=== PATIENT | female | born 1975 | race Caucasian/White ===

== ENCOUNTER 2021-04-07 17:56 | Outpatient (REF) | payer BC, SELFPAY | END 2021-04-07 17:57 | disposition home or self-care (01) | LOC: HO.LNP 17:56 | PROVIDERS: Visit Provider Internal Medicine | DX: Z20.822 Contact with and (suspected) exposure to COVID-19 (principal); J06.9 Acute upper respiratory infection, unspecified | CPT/HCPCS: U0003; U0005 ==

== ENCOUNTER 2022-08-04 11:30 | Emergency (ER) | payer BC, SELFPAY ==
[2022-08-04] VITALS (8 sets, daily range): BP systolic 99–119; BP diastolic 46–81; PULSE 66–93; RESP 16–18; TEMP 36.6–37.1; O2SAT 96–99; BMI 18.1
--- NOTE | ~2022-08-04 | CT_ITS ---
EXAMINATION: CT BRAIN, CERVICAL SPINE, CHEST, ABDOMEN AND PELVIS. CLINICAL INFORMATION: Fall down an escalator. Pain. COMPARISON: None TECHNIQUE: 5 mm thin axial and reformatted 2 mm thin sagittal and coronal images of brain were obtained without contrast. Axial 3 mm thin and reformatted 2 minutes thin sagittal coronal images of cervical spine were obtained. DLP 863. Axial 5 mm thin and reformatted 3 mm thin sagittal coronal images of chest, abdomen and pelvis were obtained. DLP 746. This CT examination was performed using dose optimization technique as appropriate, variously including the following: Automated exposure control Adjustment of MA and/or KV according to patient size(this includes techniques or standardized protocols for targeted exams where dose is matched to indication/reason for exam; extremities or head. Use of iterative reconstruction techniques. FINDINGS: BRAIN: There is no acute intra-axial, extra-axial bleed, masses or midline shift. There is no acute edema in evolution. There is no edema. The lateral ventricles are symmetrical in size and configuration without enlargement. Bone windows reveal no calvarial abnormality. There is no scalp soft tissue abnormality. Bilateral paranasal sinuses and mastoid air cells are well-aerated. CERVICAL SPINE: On sagittal reconstructed images there is mild straightening of cervical lordosis. The vertebral heights and alignment is normal. There is mild loss of C5-C6 disc level with posterior spondylosis. The rest of the disc levels are normal. The craniovertebral junction and C1-C2 alignment is normal. No visible acute fracture, dislocation or subluxation seen. There is minimal left C4-C5 facet joint arthropathy. CHEST: Both lungs are fairly well-expanded and clear acute pneumonic process. There is no pulmonary nodule, mass, contusion or consolidation. Dependent atelectatic changes are seen in both lung bases slightly more prominent on the left. There is no pleural effusion or pneumothorax. Heart size and the great vessels are normal caliber. There is no aortic aneurysm or dissection. No mediastinal mass or hematoma. No pericardial effusion. Central trachea and bronchi are widely patent. No abnormal lymph nodes seen axilla. The chest wall is unremarkable. Bone windows reveal no fractures involving the ribs or thoracic vertebrae. ABDOMEN AND PELVIS: The liver is enlarged in size contour and density. No focal lesion, laceration or perihepatic fluid collection. Visualized spleen, pancreas and bilateral adrenal glands are unremarkable. The gallbladder has been surgically removed Both kidney nephrograms are symmetrical in size without radiopaque calculi or hydronephrosis. There is scattered stool and gas seen in the colon without significant distention. The small bowel loops are normal caliber. Appendix is normal caliber. No free air or free fluid seen. The abdominal aorta is normal caliber. No abnormal lymph nodes or mass seen. The abdominal wall appears unremarkable.. CT/CT cervical spine wo IV con IMPRESSION: No acute intracranial process seen. There is no acute fracture, dislocation or subluxation in cervical spine. No acute abnormality seen in the chest, abdomen or pelvis. Nonspecific mild hepatomegaly No visible fracture involving bony thorax, pelvis or lumbar spine.
--- NOTE | ~2022-08-04 | XR_ITS ---
EXAMINATION: XR SHOULDER, LEFT CLINICAL INFORMATION: Fall with shoulder pain. COMPARISON: CT chest performed earlier today at 5:38 PM. TECHNIQUE: Three views of the left shoulder. FINDINGS: The bones and soft tissues are normal. No fracture. Glenohumeral and acromioclavicular alignment is anatomic with normal joint space. No abnormal soft tissue calcifications. XR/XR shoulder LT min 2V IMPRESSION: Normal left shoulder.
--- NOTE | ~2022-08-04 | XR_ITS ---
EXAMINATION: XR KNEE LEFT XR KNEE RIGHT CLINICAL INFORMATION: History of fall with knee pain. COMPARISON: Radiographs of right knee from 06/01/2015 TECHNIQUE: Right knee, 2 views Left knee, 2 views FINDINGS: Left knee: Alignment is normal. Bones, joints and soft tissues have a normal appearance. No arthritic deformity, fracture, subluxation or joint effusion. Right knee: Alignment is normal at patellofemoral and tibiofemoral compartments. Bones, joints and soft tissues are normal. No evidence of arthritis, fracture or subluxation. XR/XR knee LT 2V IMPRESSION: No acute findings. No fracture or malalignment at either knee.
--- NOTE | ~2022-08-04 | XR_ITS ---
EXAMINATION: XR KNEE LEFT XR KNEE RIGHT CLINICAL INFORMATION: History of fall with knee pain. COMPARISON: Radiographs of right knee from 06/01/2015 TECHNIQUE: Right knee, 2 views Left knee, 2 views FINDINGS: Left knee: Alignment is normal. Bones, joints and soft tissues have a normal appearance. No arthritic deformity, fracture, subluxation or joint effusion. Right knee: Alignment is normal at patellofemoral and tibiofemoral compartments. Bones, joints and soft tissues are normal. No evidence of arthritis, fracture or subluxation. XR/XR knee RT 2V IMPRESSION: No acute findings. No fracture or malalignment at either knee.
[2022-08-04] MEDS: oxyCODONE HCl Immed Release 5 MG TABLET 10 MG PO (12:24)
--- NOTE | 2022-08-04 12:54 | PC.NURSE ---
Pt received x-rays and prescribed medication. Pt resting comfortably in bed.
--- NOTE | 2022-08-04 13:17 | ED.FALL ---
HPI - Fall General Chief Complaint: Fall <Linda Sigala NP - Last Filed: 08/07/22 10:55> Stated Complaint: FALL DOWN ESCALATOR,+COLLAR,-LOC <Linda Sigala NP - Last Filed: 08/07/22 10:55> Time Seen by Provider: 08/04/22 11:33 <Linda Sigala NP - Last Filed: 08/07/22 10:55> Source: patient <Linda Sigala NP - Last Filed: 08/07/22 10:55> Mode of arrival: ambulatory <Linda Sigala NP - Last Filed: 08/07/22 10:55> Limitations: no limitations <Linda Sigala NP - Last Filed: 08/07/22 10:55> History of Present Illness HPI Narrative: 47-year-old female with a past medical history of chronic back pain managed with prescribed oxycodone, presents to the emergency department, via EMS with c-collar on, today after falling down several escalator steps while attempting to scratch her foot. She reports left shoulder pain, bilateral elbow pain, bilateral phipps pain, and back pain from skidding down the steps. She denies hitting her head or any loss of consciousness. She denies feeling faint, dizzy, lightheaded, short of breath, any chest pain prior to the fall. At this time she denies any headache, vision changes, chest pain, shortness of breath. <Linda Sigala NP - Last Filed: 08/07/22 10:55> MD complaint: fall <Linda Sigala NP - Last Filed: 08/07/22 10:55> Onset (ago): hour(s) <Linda Sigala NP - Last Filed: 08/07/22 10:55> Fall from: standing <Linda Sigala NP - Last Filed: 08/07/22 10:55> Fall witnessed: yes, by bystander <Linda Sigala NP - Last Filed: 08/07/22 10:55> Place fall occurred: other (shopping mall) <Linda Sigala NP - Last Filed: 08/07/22 10:55> Loss of consciousness: none <Linda Sigala NP - Last Filed: 08/07/22 10:55> Prolonged down time: no <Linda Sigala NP - Last Filed: 08/07/22 10:55> Symptoms prior to fall: none <Linda Sigala NP - Last Filed: 08/07/22 10:55> Context: tripped/slipped <Linda Sigala NP - Last Filed: 08/07/22 10:55> Location of injury: back <Linda Sigala NP - Last Filed: 08/07/22 10:55> Location of injury - extremities: left: shoulder and bilateral: elbow and knee <Linda Sigala NP - Last Filed: 08/07/22 10:55> Severity: moderate <Linda Sigala NP - Last Filed: 08/07/22 10:55> Severity scale (1-10): 6 <Linda Sigala NP - Last Filed: 08/07/22 10:55> Quality: aching and throbbing <Linda Sigala NP - Last Filed: 08/07/22 10:55> Associated symptoms (after fall): denies <Linda Sigala NP - Last Filed: 08/07/22 10:55> Related Data Home Medications: Home Medications Medication Instructions Recorded Confirmed bupropion HCl 150 mg tablet,12 hr 150 mg PO DAILY 04/07/21 sustained-release carisoprodol 350 mg tablet 350 mg PO TID PRN 04/07/21 citalopram 10 mg tablet 10 mg PO DAILY 04/07/21 lorazepam 1 mg tablet 1 mg PO DAILY PRN 04/07/21 mometasone 0.1 % topical ointment topical 04/07/21 oxycodone 10 mg tablet 10 mg PO QID PRN 04/07/21 zolpidem 10 mg tablet 10 mg PO BEDTIME PRN 04/07/21 zolpidem 5 mg tablet 5 mg PO BEDTIME PRN 04/07/21 <Linda Sigala NP - Last Filed: 08/07/22 10:55> Allergies/Adverse Reactions: Allergies Allergy/AdvReac Type Severity Reaction Status Date / Time lactose [LACTOSE] Allergy Unknown UNKNOWN Verified 04/07/21 12:48 morphine [MORPHINE] Allergy Unknown HIVES Verified 04/07/21 12:48 NSAIDS (Non-Steroidal Allergy Unknown ULCERTIVE Verified 04/07/21 12:48 Anti-Inflamma COLLITIS [NSAIDS (NON-STEROIDAL ANTI-INFLAMMA] <Linda Sigala NP - Last Filed: 08/07/22 10:55> Review of Systems Review of Systems: In addition to documented HPI above, the additional ROS was obtained: Constitutional: No Fever, No Chills ENT/Mouth: No Ear Pain, No Nasal Congestion, No Sinus Pain, No Hoarseness, No sore throat, No Rhinorrhea, No Swallowing Difficulty Cardiovascular: No Chest Pain, No SOB Respiratory: No Cough, No Sputum, No Wheezing Gastrointestinal: No Nausea, No Vomiting, No Diarrhea, No Constipation, No Abdominal pain Genitourinary: No Dysuria, No Urinary Frequency, No Hematuria, No Urinary Incontinence/retention, No Urgency, No Flank Pain Musculoskeletal: No joint pain, No Myalgias, No Joint Swelling Skin: No Skin Lesions, No rash Neuro: No Weakness, No Numbness, No Paresthesias <Linda Sigala NP - Last Filed: 08/07/22 10:55> Yes all other systems are reviewed and are negative <Linda Sigala NP - Last Filed: 08/07/22 10:55> PMFSH Past Medical History Attestation statement: The following information was validated with the patient. <Linda Sigala NP - Last Filed: 08/07/22 10:55> Source: old records reviewed <Linda Sigala NP - Last Filed: 08/07/22 10:55> Social History Social History: Social History Alcohol intake: never Smoked in Last 30 Days: No Use of substances other than those prescribed or required for medical reasons: No Advance Directives: No <Linda Sigala NP - Last Filed: 08/07/22 10:55> Physical Exam Vital Signs: Vital Signs: Last Vital Signs Temp 98.7 F 08/04/22 19:47 Pulse 83 08/04/22 20:01 Resp 18 08/04/22 19:47 BP 110/76 08/04/22 20:01 Pulse Ox 97 08/04/22 19:47 O2 Del Method 08/04/22 19:47 BMI result Body Mass Index 18.1 <Linda Sigala NP - Last Filed: 08/07/22 10:55> Vital Signs: Last Vital Signs Temp 98.7 F 08/04/22 19:47 Pulse 83 08/04/22 20:01 Resp 18 08/04/22 19:47 BP 110/76 08/04/22 20:01 Pulse Ox 97 08/04/22 19:47 O2 Del Method 08/04/22 19:47 BMI result Body Mass Index 18.1 <KOMAL Rodríguez - Last Filed: 08/04/22 20:59> Const: General: cooperative, alert and awake <Linda Sigala NP - Last Filed: 08/07/22 10:55> Nutritional Appearance: average body habitus <Linda Sigala NP - Last Filed: 08/07/22 10:55> Orientation/consciousness: patient oriented x3 <Linda Sigala NP - Last Filed: 08/07/22 10:55> Limitations: no limitations <Linda Sigala NP - Last Filed: 08/07/22 10:55> HEENT: Head: Yes normal to inspection and Yes atraumatic <Linda Sigala NP - Last Filed: 08/07/22 10:55> Ears: hearing grossly normal bilaterally and external ears normal <Linda Sigala NP - Last Filed: 08/07/22 10:55> General nose exam: Normal external nose present and Normal nares present <Linda Sigala NP - Last Filed: 08/07/22 10:55> Face and sinus: Yes normal facial exam and Yes face symmetric <Linda Sigala NP - Last Filed: 08/07/22 10:55> Mouth: Normal oral and palatal mucosa present <Linda Sigala NP - Last Filed: 08/07/22 10:55> Teeth and gingiva: dentition normal <Linda Sigala AUTOMATIC LATHE TENDER - Last Filed: 08/07/22 10:55> Throat: Yes posterior oropharynx normal <Linda Sigala AUTOMATIC LATHE TENDER - Last Filed: 08/07/22 10:55> Eyes: General: appearance normal, both eyes and all related structures <Linda Sigala AUTOMATIC LATHE TENDER - Last Filed: 08/07/22 10:55> Visual Milner: normal visual milner by confrontation <Linda Sigala AUTOMATIC LATHE TENDER - Last Filed: 08/07/22 10:55> Alignment and Position: alignment normal <Linda Sigala AUTOMATIC LATHE TENDER - Last Filed: 08/07/22 10:55> Periorbital: periorbital findings normal <Linda Sigala AUTOMATIC LATHE TENDER - Last Filed: 08/07/22 10:55> Eyelids: Yes eyelids normal <Linda Sigala NP - Last Filed: 08/07/22 10:55> Conjunctivae: conjunctivae normal <Linda Sigala AUTOMATIC LATHE TENDER - Last Filed: 08/07/22 10:55> Sclerae: sclerae normal <Linda Sigala AUTOMATIC LATHE TENDER - Last Filed: 08/07/22 10:55> Corneas: corneas normal <Linda Sigala AUTOMATIC LATHE TENDER - Last Filed: 08/07/22 10:55> Pupils: Equal, round and reactive pupils present <Linda Sigala AUTOMATIC LATHE TENDER - Last Filed: 08/07/22 10:55> EOM: EOMs intact bilaterally <Linda Sigala AUTOMATIC LATHE TENDER - Last Filed: 08/07/22 10:55> Neck: Neck: Yes normal visual inspection <Linda Sigala AUTOMATIC LATHE TENDER - Last Filed: 08/07/22 10:55> Chest: Chest palpation & inspection: normal inspection of the chest <Linda Sigala AUTOMATIC LATHE TENDER - Last Filed: 08/07/22 10:55> Resp: Effort & Inspection: normal respiratory effort and not labored <Linda Sigala AUTOMATIC LATHE TENDER - Last Filed: 08/07/22 10:55> Auscultation: clear to auscultation bilaterally, no crackles, no rhonchi and no wheezes <Linda Sigala, AUTOMATIC LATHE TENDER - Last Filed: 08/07/22 10:55> Cardio: Rate: regular rate <Linda Jovon, AUTOMATIC LATHE TENDER - Last Filed: 08/07/22 10:55> Rhythm: regular rhythm <Linda Sigala, AUTOMATIC LATHE TENDER - Last Filed: 08/07/22 10:55> GI: Inspection: Yes normal to inspection <Linda Pastortahmina, AUTOMATIC LATHE TENDER - Last Filed: 08/07/22 10:55> Palpation (GI): Soft to palpation and nontender <Linda Jovon, AUTOMATIC LATHE TENDER - Last Filed: 08/07/22 10:55> Auscultation: normal bowel sounds <Linda Pastortahmina, AUTOMATIC LATHE TENDER - Last Filed: 08/07/22 10:55> : General: Yes no CVA tenderness <Linda Pastortahmina, AUTOMATIC LATHE TENDER - Last Filed: 08/07/22 10:55> Back/Spine/Pelvis: Back: no CVA tenderness, ecchymosis and back tenderness <Linda Jovon, AUTOMATIC LATHE TENDER - Last Filed: 08/07/22 10:55> Thoracic/Lumbar Spine: thoraco-lumbar ROM normal <Linda Pastortahmina, AUTOMATIC LATHE TENDER - Last Filed: 08/07/22 10:55> Skin: General skin exam: no rashes or lesions noted <Linda Sigala, AUTOMATIC LATHE TENDER - Last Filed: 08/07/22 10:55> Neuro: General: patient oriented x3, tone normal and moves all extremities <Linda Pastortahmina, AUTOMATIC LATHE TENDER - Last Filed: 08/07/22 10:55> Cranial nerves: Yes Equal, round and reactive pupils present <Linda Pastortahmina, AUTOMATIC LATHE TENDER - Last Filed: 08/07/22 10:55> Cognition (Neuro): normal cognition <Linda Parisamason, AUTOMATIC LATHE TENDER - Last Filed: 08/07/22 10:55> Motor exam (neuro): 5/5 motor strength present throughout <Linda Pastortahmina, AUTOMATIC LATHE TENDER - Last Filed: 08/07/22 10:55> Extrem: General: Yes normal to inspection, Yes full ROM and Yes capillary refill normal <Linda Pluciennik AUTOMATIC LATHE TENDER - Last Filed: 08/07/22 10:55> Psych: Appearance: grossly normal <Linda Sigala AUTOMATIC LATHE TENDER - Last Filed: 08/07/22 10:55> Mental Status: mental status grossly normal <Linda Sigala AUTOMATIC LATHE TENDER - Last Filed: 08/07/22 10:55> Speech and movement: Normal speech and movement present <Linda Sigala AUTOMATIC LATHE TENDER - Last Filed: 08/07/22 10:55> Affect: normal affect <Linda Sigala AUTOMATIC LATHE TENDER - Last Filed: 08/07/22 10:55> Attitude: cooperative <Linda SigalaJAYME - Last Filed: 08/07/22 10:55> Thought process: Normal thought process present <Linda Sigala AUTOMATIC LATHE TENDER - Last Filed: 08/07/22 10:55> Thought content: Normal thought content present <Linda SigalaJAYME - Last Filed: 08/07/22 10:55> Insight: Good insight present (Psych) <Linda Sigala AUTOMATIC LATHE TENDER - Last Filed: 08/07/22 10:55> Judgement: Good judgement present (Psych) <Linda SigalaJAYME - Last Filed: 08/07/22 10:55> Course Course Course Narrative: 1200: Unable to assess cervical ROM as c-collar is in place. Pt BARRIENTOS with good strength. Pt rolled to side without issue or complaints of pain, to roll onto bedpan. Able to assess pt's back at that time and bruising noted from roughly T3-L3 across back into flanks. CT w/contrast ordered for thoracic and lumbar spine to rule out injury. Imaging ordered of c-spine and bilat knees and shoulder 1400: Reevaluation: pt resting comfortable. C-collar remains. A&O x 4. No complaints of flank or worsening back pain. No complaints of neck pain. BARRIENTOS with good strength. Clear speech. 1700: Reevaluation: no changes in physical exam 1730: Pt in CT scan 1800: Pt in CT scan. Pending xray lt shoulder. Sign out given to KOMAL Thomas with all questions answered. <Lindajuana Sigala NP - Last Filed: 08/07/22 10:55> Reevaluation(s) Reevaluation #1: CT of the head with no intracranial process seen. No acute fracture dislocation or subluxation in cervical spine. No acute abnormality seen in the chest, abdomen or pelvis. Nonspecific mild hepatomegaly, no visible fracture involving the bony thorax pelvis or lumbar spine. Normal x-rays of bilateral knees. <KOMAL Rodríguez - Last Filed: 08/04/22 20:59> Time: 19:14 <KOMAL Rodríguez - Last Filed: 08/04/22 20:59> Reevaluation #2: X-ray left shoulder negative. No acute findings on x-ray of knees. CT of the head with no acute intracranial process there is no acute fracture, dislocation or subluxation and cervical spine. No acute abnormality in chest, abdomen or pelvis. Educated patient on diagnosis and treatment plan, answered all question, patient verbalizes understanding. At this time patient will be discharged home, advised to return with new or worsening symptoms. Educated on worrisome signs and symptoms and when to return. At this time I feel comfortable discharge home. At time of discharge patient ambulating w/ steady gait. <KOMAL Rodríguez - Last Filed: 08/04/22 20:59> Time: 20:56 <KOMAL Rodríguez - Last Filed: 08/04/22 20:59> Medications Administered Discontinued Medications Generic Name Dose Route Start Last Admin Trade Name Freq PRN Reason Stop Dose Admin Iohexol 100 ml 08/04/22 17:48 08/04/22 17:48 Iohexol 350 Mg/Ml 100 Ml Infus..Btl IV 08/04/22 17:49 85 ml ONCE ONE Administration Oxycodone HCl 10 mg 08/04/22 12:16 08/04/22 12:24 Oxycodone Hcl Immed Release 5 Mg Tablet PO 08/04/22 12:17 10 mg ONCE ONE Administration <Linda Sigala NP - Last Filed: 08/07/22 10:55> Medications Administered Discontinued Medications Generic Name Dose Route Start Last Admin Trade Name Freq PRN Reason Stop Dose Admin Iohexol 100 ml 08/04/22 17:48 08/04/22 17:48 Iohexol 350 Mg/Ml 100 Ml Infus..Btl IV 08/04/22 17:49 85 ml ONCE ONE Administration Oxycodone HCl 10 mg 08/04/22 12:16 08/04/22 12:24 Oxycodone Hcl Immed Release 5 Mg Tablet PO 08/04/22 12:17 10 mg ONCE ONE Administration <KOMAL Rodríguez - Last Filed: 08/04/22 20:59> Medical Decision Making Medical Decision Making [facility] Narrative: 47-year-old female with a past medical history of chronic back pain managed with prescribed oxycodone, presents to the emergency department, via EMS with c-collar on, today after falling down several escalator steps while attempting to scratch her foot. She reports left shoulder pain, bilateral elbow pain, bilateral phipps pain, and back pain from skidding down the steps. She denies hitting her head or any loss of consciousness. Oxycodone IR 10 mg ordered as patient states she uses oxycodone 10 mg q.4 hours for control of chronic pain. This is consistent with PDMP data with last prescription filled on 07/10/2022 for an 18 day prescription. Blood work showing elevated WBC most likely due to pain response and fall, remaining blood work unremarkable. CT scan and Lt shoulder xray pending. Symptoms are consistent with acute contusion and muscle strain after falling down an escalator. Low suspicion for fracture, nerve impingement, cardiac, pulmonary, or organ injury based on HPI, PE, and diagnostic exams. Patient is safe for discharge at this time with pain management with [id number] Tylenol as patient is already prescribed immediate release oxycodone every 4 hours. HPI, PE, diagnostics, and plan discussed with patient and family with no unanswered questions at this time. Patient educated to return to the emergency department with new, worsening, or concerning emergent symptoms. Recommended to follow-up with her primary care provider for further treatment and management. *Refer to Course for additional information on consultations, diagnostic interpretation, consultations, emergency department stay, conversations with patient and family, shared decision making with patient, and more information on medical decision making* <Linda Sigala NP - Last Filed: 08/07/22 10:55> Lab Data [facility] Lab Attestation statement: I reviewed the patient's lab results. <Linda Sigala NP - Last Filed: 08/07/22 10:55> Result Diagrams: 08/04/22 16:40 08/04/22 16:40 <Linda Sigala NP - Last Filed: 08/07/22 10:55> Labs: Lab Results 08/04/22 08/04/22 Range/Units 16:40 16:40 WBC 11.2 H (4.8-10.8) X10*3/uL RBC 3.99 L (4.20-5.50) X10*6/uL Hgb 12.1 (12.0-16.0) g/dl Hct 36.7 L (37.0-47.0) % MCV 92.0 (80.0-98.0) fL MCH 30.3 (27.0-33.0) pg MCHC 33.0 (31.0-35.0) g/dl RDW 12.9 (11.0-16.0) % Plt Count 329 (160-400) X10*3/uL MPV 9.1 L (9.4-12.3) fL Immature Gran % (Auto) 0.4 (0.0-0.4) % Neut % (Auto) 71.7 (45-73) % Lymph % (Auto) 20.4 (20-40) % [place] % (Auto) 5.8 (2-11) % Eos % (Auto) 1.2 (0-4) % Baso % (Auto) 0.5 (0-2) % Lymph # (Auto) 2.3 (1.2-4.9) X10*3/uL [place] # (Auto) 0.7 (0.1-1.2) X10*3/uL Eos # (Auto) 0.1 (0.0-0.4) X10*3/uL Baso # (Auto) 0.1 (0.0-0.2) X10*3/uL Abs Immat Gran (auto) 0.04 H (0.00-0.03) X10*3/uL Absolute Neuts (auto) 8.0 (2.0-8.3) x10*3/uL Absolute Nucleated RBC 0.020 H (0.0-0.012) X10*3/uL Nucleated RBC % (auto) 0.2 (0.0-0.2) /100WBC Sodium 138 (135-145) mmol/L Potassium 3.9 (3.3-5.1) mmol/L Chloride 109 H (96-108) mmol/L Carbon Dioxide 24 (22-29) mmol/L Anion Gap 9 L (12-20) BUN 7 L (9-16) mg/dL Creatinine 0.67 (0.5-1.4) mg/dL Estim Creat Clear Calc 85.0 Estimated GFR > 60 Random Glucose 90 (60-115) mg/dL Calcium 8.6 (8.4-10.2) mg/dL Total Bilirubin 0.4 (0.0-1.0) mg/dL AST 13 (5-31) U/L ALT 8 (0-31) U/L Alkaline Phosphatase 44 (39-117) U/L Total Protein 5.7 L (6.5-8.0) g/dL Albumin 4.0 (3.5-5.0) g/dL <Linda Sigala AUTOMATIC LATHE TENDER - Last Filed: 08/07/22 10:55> Lab Results 08/04/22 08/04/22 Range/Units 16:40 16:40 WBC 11.2 H (4.8-10.8) X10*3/uL RBC 3.99 L (4.20-5.50) X10*6/uL Hgb 12.1 (12.0-16.0) g/dl Hct 36.7 L (37.0-47.0) % MCV 92.0 (80.0-98.0) fL MCH 30.3 (27.0-33.0) pg MCHC 33.0 (31.0-35.0) g/dl RDW 12.9 (11.0-16.0) % Plt Count 329 (160-400) X10*3/uL MPV 9.1 L (9.4-12.3) fL Immature Gran % (Auto) 0.4 (0.0-0.4) % Neut % (Auto) 71.7 (45-73) % Lymph % (Auto) 20.4 (20-40) % [place] % (Auto) 5.8 (2-11) % Eos % (Auto) 1.2 (0-4) % Baso % (Auto) 0.5 (0-2) % Lymph # (Auto) 2.3 (1.2-4.9) X10*3/uL [place] # (Auto) 0.7 (0.1-1.2) X10*3/uL Eos # (Auto) 0.1 (0.0-0.4) X10*3/uL Baso # (Auto) 0.1 (0.0-0.2) X10*3/uL Abs Immat Gran (auto) 0.04 H (0.00-0.03) X10*3/uL Absolute Neuts (auto) 8.0 (2.0-8.3) x10*3/uL Absolute Nucleated RBC 0.020 H (0.0-0.012) X10*3/uL Nucleated RBC % (auto) 0.2 (0.0-0.2) /100WBC Sodium 138 (135-145) mmol/L Potassium 3.9 (3.3-5.1) mmol/L Chloride 109 H (96-108) mmol/L Carbon Dioxide 24 (22-29) mmol/L Anion Gap 9 L (12-20) BUN 7 L (9-16) mg/dL Creatinine 0.67 (0.5-1.4) mg/dL Estim Creat Clear Calc 85.0 Estimated GFR > 60 Random Glucose 90 (60-115) mg/dL Calcium 8.6 (8.4-10.2) mg/dL Total Bilirubin 0.4 (0.0-1.0) mg/dL AST 13 (5-31) U/L ALT 8 (0-31) U/L Alkaline Phosphatase 44 (39-117) U/L Total Protein 5.7 L (6.5-8.0) g/dL Albumin 4.0 (3.5-5.0) g/dL <KOMAL Rodríguez - Last Filed: 08/04/22 20:59> Radiology Impression Discussion of test interpretation with radiology: I have reviewed the radiologist's reading. <Linda Sigala NP - Last Filed: 08/07/22 10:55> Radiologist Impression: I have independently reviewed the bilateral knee x-rays showing no acute fracture, or malalignment. EXAMINATION: XR KNEE LEFT XR KNEE RIGHT CLINICAL INFORMATION: History of fall with knee pain.? COMPARISON: Radiographs of right knee from 06/01/2015? TECHNIQUE: Right knee, 2 views Left knee, 2 views? FINDINGS: Left knee: Alignment is normal. Bones, joints and soft tissues have a normal appearance. No arthritic deformity, fracture, subluxation or joint effusion. Right knee: Alignment is normal at patellofemoral and tibiofemoral compartments. Bones, joints and soft tissues are normal. No evidence of arthritis, fracture or subluxation.? XR/XR knee RT 2V IMPRESSION: No acute findings. No fracture or malalignment at either knee.? Dictated By: Misael Butler MD Signed By: <Electronically signed by Misael Butler MD in [place]> 08/04/22 1335 DD/ 1236 TD/TT:? Aquatic Instructor: PD <Linda Sigala NP - Last Filed: 08/07/22 10:55> Discharge Plan Discharge Clinical Impression: Fall (on)(from) escalator, initial encounter, Shoulder pain, Knee pain, Ecchymosis <Linda Sigala NP - Last Filed: 08/07/22 10:55> Patient Disposition: Home, Self-Care <Linda Sigala NP - Last Filed: 08/07/22 10:55> Instructions: Contusion in Adults (ED), Post Concussion Syndrome (ED), Fall Prevention (ED) <Linda Sigala NP - Last Filed: 08/07/22 10:55> Additional Instructions: Your bilateral knee x-ray is negative for fracture, dislocation, or malalignment. Your symptoms are consistent with acute contusion and muscle strain after falling down an escalator. You are safe for discharge and may manage your discomfort with [id number] Tylenol. Please return to the emergency department with new, worsening, or concerning emergent symptoms. Please follow-up with your primary care provider for further treatment and management. CT/CT chest w IV con IMPRESSION: No acute intracranial process seen. ? There is no acute fracture, dislocation or subluxation in cervical spine. ? No acute abnormality seen in the chest, abdomen or pelvis. Nonspecific mild hepatomegaly No visible fracture involving bony thorax, pelvis or lumbar spine.? <Linda Sigala NP - Last Filed: 08/07/22 10:55> Prescriptions: No Action zolpidem 10 mg tablet 10 mg PO BEDTIME PRN zolpidem 5 mg tablet 5 mg PO BEDTIME PRN carisoprodol 350 mg tablet 350 mg PO TID PRN lorazepam 1 mg tablet 1 mg PO DAILY PRN oxycodone 10 mg tablet 10 mg PO QID PRN mometasone 0.1 % ointment topical citalopram 10 mg tablet 10 mg PO DAILY bupropion HCl 150 mg tablet sustained-release 12 hr 150 mg PO DAILY <Linda Sigala NP - Last Filed: 08/07/22 10:55> Referrals: Dina Kay MD [Primary Care Provider] - <Linda Sigala NP - Last Filed: 08/07/22 10:55> Stand Alone Forms: Work/School Release <Linda Sigala NP - Last Filed: 08/07/22 10:55> Interventions: ED Discharge Assessment Last Done: 08/04/22 21:09 <Linda Sigala NP - Last Filed: 08/07/22 10:55> Discharge Date/Time: 08/04/22 21:13 <Linda Sigala NP - Last Filed: 08/07/22 10:55> Print Language: Pashto <Linda Sigala NP - Last Filed: 08/07/22 10:55>
[2022-08-04 16:47] LABS: MANUAL DIFF FLAG NO
[2022-08-04 16:53] LABS: Basophils Absolute Auto 0.1 X10*3/uL (0.0-0.2); Basophils Percent Auto 0.5 % (0-2); Eosinophils Absolute Auto 0.1 X10*3/uL (0.0-0.4); Eosinophils Percent Auto 1.2 % (0-4); Hematocrit 36.7 % (37.0-47.0); Hemoglobin 12.1 g/dl (12.0-16.0); Imm Gran Abs Auto 0.04 X10*3/uL (0.00-0.03); Imm Gran Pct Auto 0.4 % (0.0-0.4); Lymphocytes Absolute Auto 2.3 X10*3/uL (1.2-4.9); Lymphocytes Percent Auto 20.4 % (20-40); Mean Corpuscular Hemoglobin 30.3 pg (27.0-33.0); Mean Platelet Volume 9.1 fL (9.4-12.3); Monocytes Absolute Auto 0.7 X10*3/uL (0.1-1.2); Monocytes Percent Auto 5.8 % (2-11); NRBC Pct Auto 0.2 /100WBC (0.0-0.2); Neutrophils Percent Auto 71.7 % (45-73); Platelet Count 329 X10*3/uL (160-400); Red Blood Count 3.99 X10*6/uL (4.20-5.50); Red Cell Distribution Width 12.9 % (11.0-16.0); White Blood Count 11.2 X10*3/uL (4.8-10.8)
[2022-08-04 17:22] LABS: Alanine Aminotransferase 8 U/L (0-31); Alkaline Phosphatase 44 U/L (39-117); Anion Gap 9 (12-20); Aspartate Amino Transferase 13 U/L (5-31); Bilirubin Total 0.4 mg/dL (0.0-1.0); Blood Urea Nitrogen 7 mg/dL (9-16); Calcium 8.6 mg/dL (8.4-10.2); Carbon Dioxide 24 mmol/L (22-29); Chloride 109 mmol/L (96-108); Estimated Glomerular Filt Rate > 60; Glucose Random 90 mg/dL (60-115); Potassium 3.9 mmol/L (3.3-5.1); Sodium 138 mmol/L (135-145); Total Protein 5.7 g/dL (6.5-8.0)
[2022-08-04] MEDS: iohexoL 350 MG/ML 100 ML INFUS..BTL IV (17:48)
--- NOTE | 2022-08-04 18:50 | PC.NURSE ---
RN requested pain to MD per pt request as her home meds are ordered
== END 2022-08-04 21:13 | disposition home or self-care (01) ==
PROVIDERS: Nurse Practitioner Family; Emergency Provider Internal Medicine; PCP Family Medicine
DX: S30.0XXA Contusion of lower back and pelvis, initial encounter (principal); S30.1XXA Contusion of abdominal wall, initial encounter; W10.0XXA Fall (on)(from) escalator, initial encounter; M25.512 Pain in left shoulder; M25.562 Pain in left knee; M25.561 Pain in right knee; M25.522 Pain in left elbow; M25.521 Pain in right elbow; Y93.9 Activity, unspecified; Y92.9 Unspecified place or not applicable; Y99.9 Unspecified external cause status; Z79.899 Other long term (current) drug therapy
CPT/HCPCS: 36415; 70450; 71260; 72125; 73030; 73560; 74177; 80053; 85025; 99284; 99285; Q9967

== ENCOUNTER 2023-02-17 23:31 | Emergency (ER) | payer BC, SELFPAY ==
--- NOTE | ~2023-02-17 | CT_ITS ---
EXAMINATION: NONCONTRAST HEAD CT NONCONTRAST CERVICAL SPINE CT INDICATION INFORMATION: Seizure, fall with neck pain COMPARISON: 08/04/2022 TECHNIQUE: Separate noncontrast CT examinations of the head and cervical spine were performed. Coronal head CT images and coronal and sagittal cervical spine images were created at the technologist workstation. DLP: 877 mGy-cm DOSE LOWERING TECHNIQUES: This CT examination was performed using dose optimization techniques as appropriate, variously including the following: - Automated exposure control - Adjustment of mA and/or kV according to patient size (this includes techniques or standardized protocols for targeted exams were dose is matched to indication/reason for exam; i.e. extremities or head) - Use of iterative reconstruction technique FINDINGS: Head: There is no evidence of acute intracranial hemorrhage or territorial infarction. No abnormal mass-effect or midline shift is seen. Paige to white matter differentiation is well preserved. No extra-axial fluid collections are identified. The ventricles are normal in size. There is no abnormal attenuation within the brain parenchyma. The osseous structures and soft tissues are normal. The mastoid air cells and visualized portions of the paranasal sinuses are well-aerated. Cervical spine: There is anatomic alignment of the vertebral bodies and posterior elements. There is degenerative change at the atlantodens articulation. Vertebral body heights are maintained. Mild disc space narrowing at C5-C6. No evidence of acute fracture. No prevertebral soft tissue swelling. Visualized portions of the lung apices are unremarkable. There is a left thyroid nodule measuring 1.[address]/CT cervical spine wo IV con IMPRESSION: HEAD: No acute intracranial findings. CERVICAL SPINE: 1. No acute findings identified. 2. Left thyroid nodule measuring 1.6 cm. If not already performed, further assessment with nonemergent ultrasound is recommended.
[2023-02-17 23:34] VITALS: BP 101/55; PULSE 89; RESP 16; TEMP 36.4; O2SAT 95; BMI 18.6
[2023-02-17 23:58] VITALS: BP 98/55; PULSE 69; RESP 10; O2SAT 97
--- NOTE | 2023-02-18 00:32 | ED.SEIZURE ---
HPI - Seizure General Chief Complaint: Seizure Stated Complaint: Seizure Time Seen by Provider: 02/18/23 00:02 Source: patient and family (Spouse) Mode of arrival: ambulatory Limitations: no limitations History of Present Illness HPI Narrative: 47-year-old female came in for evaluation of witness seizure with her spouse. Patient with history of anxiety, chronic low back pain patient required taking lorazepam and oxycodone for the past 8 years for her chronic anxiety and back pain, patient reported that she ran out of lorazepam and did not take it for the last 4 days, patient was witnessed by her family having a tonic-clonic seizure patient was found by her having seizure activity on the ground between the couch and the coffee table with possible head injury to the coffee table. No tongue bite, no urinary incontinence, seizure activity lasted for about a minute and patient had postictal disorientation for about 10 minutes then patient started to respond to her was confused. In the emergency department patient is able to give a full history, and patient is not confused. Patient is complaining of headache, neck pain, bilateral shoulder pain, diffuse body ache. Seizure History: No Place: Home Related Data Home Medications Medication Instructions Recorded Confirmed bupropion HCl 150 mg tablet,12 hr 150 mg PO DAILY 04/07/21 sustained-release carisoprodol 350 mg tablet 350 mg PO TID PRN 04/07/21 citalopram 10 mg tablet 10 mg PO DAILY 04/07/21 lorazepam 1 mg tablet 1 mg PO DAILY PRN 04/07/21 mometasone 0.1 % topical ointment topical 04/07/21 oxycodone 10 mg tablet 10 mg PO QID PRN 04/07/21 zolpidem 10 mg tablet 10 mg PO BEDTIME PRN 04/07/21 zolpidem 5 mg tablet 5 mg PO BEDTIME PRN 04/07/21 Allergies Allergy/AdvReac Type Severity Reaction Status Date / Time lactose [LACTOSE] Allergy Unknown UNKNOWN Verified 04/07/21 12:48 morphine [MORPHINE] Allergy Unknown HIVES Verified 04/07/21 12:48 NSAIDS (Non-Steroidal Allergy Unknown ULCERTIVE Verified 04/07/21 12:48 Anti-Inflamma COLLITIS [NSAIDS (NON-STEROIDAL ANTI-INFLAMMA] Review of Systems Review of Systems: All other systems are reviewed and are negative Constitutional: Reports as per HPI and Reports no additional constitutional complaints Eyes: Reports as per HPI and Reports no additional eye complaints Reports system reviewed and no additional complaints, except as documented Cardiovascular: Reports as per HPI and Reports no additional cardiovascular complaints Respiratory: Reports as per HPI and Reports no additional respiratory complaints Gastrointestinal: Reports as per HPI and Reports no additional gastrointestinal complaints Genitourinary: Reports no additional female genitourinary complaints Musculoskeletal: Reports no additional musculoskeletal complaints Skin/Breast: Reports system reviewed and no additional complaints, except as docu Psychiatric: Reports no additional psychiatric complaints Endocrine: Reports no additional endocrine complaints Hematologic/Lymphatic: Reports no additional hematologic/lymphatic complaints Allergic/Immunologic: Reports no additional allergic/immunologic complaints Reports system reviewed and no additional complaints, except as documented and Reports Abnormal speech present [facility] Social History Social History Alcohol intake: never Smoked in Last 30 Days: Yes Use of substances other than those prescribed or required for medical reasons: No Patient : No Physical Exam Vital Signs: Vital Signs: Last Vital Signs Temp 97.6 F 02/17/23 23:34 Pulse 69 02/17/23 23:58 Resp 10 L 02/17/23 23:58 BP 98/55 L 02/17/23 23:58 Pulse Ox 97 02/17/23 23:58 O2 Del Method Room Air 02/17/23 23:58 BMI result Body Mass Index 18.6 Vital signs have been reviewed as appeared to be correct. Blood pressure normal. Heart rate normal. Respiration rate normal. Temperature normal. Oxygen saturation normal. Appearance: Alert. Oriented X3. No acute distress. Head: Normal external exam. Normocephalic. Atraumatic. No Soriano signs noted. No raccoon eyes noted Eyes: PERRLA. EOMI. Conjunctiva and sclera normal. Eyelids normal. ENT: TM's Normal. Pharynx normal. Uvula midline. Moist mucous membranes. No trismus noted. No drooling noted. No muffled voice noted. Neck: Normal inspection. Neck supple. FROM. No adenopathy. Thyroid Normal. No meningeal signs. No neck mass noted. CVS: Normal heart rate and rhythm. Heart sound normal. No murmurs noted. Pulses normal throughout. Respiratory: No respiratory distress. Painless inspiration. Breath sounds normal. No wheezes/rales/rhonchi noted. Chest nontender. No accessory muscle usage noted or decreased air movement noted. Abdomen: Soft and nontender. Bowel sounds normal in all 4 quadrants. No distention noted. No organomegaly noted. No visible injury noted. Back: No CVA tenderness. Full range of motion noted. Skin: Skin warm and dry. Normal skin color. Normal skin turgor. No rashes/lesions/lacerations noted. Extremities: No lower extremity edema. Extremities exhibit normal range of motion. Extremities nontender. Neuro: Oriented X 3. Cranial nerve exam: II-XII are grossly intact No motor deficit. No sensory deficit. Reflexes normal. Course Reevaluation(s) Reevaluation #1: Patient feels better, had a seizure thought to be withdrawing from benzos that she did intake for the past 4 days patient will receive her prescription tomorrow. Declined using any other recreational drugs or drinking alcohol normal neuro exam, normal head CT. Time: 01:00 Medical Decision Making Differential Diagnosis Differential Diagnoses: The differential diagnosis associated with the presentation includes (Seizure, intracranial bleed, cervical spine injury, benzo withdrawal, electrolyte abnormalities, dehydration, severe anemia.) Admission/Observation Consideration of admission/observation: Escalation of care including admission/observation considered Lab Data MDM Lab Attestation statement: I reviewed the patient's lab results. Independent Interpretation I performed an independent interpretation of an: CT Scan (Head/C-spine CT: No acute intracranial pathology, no cervical spine injury.) Radiology Impression Discussion of test interpretation with radiology: I have reviewed the radiologist's reading. Discharge Plan Discharge Clinical Impression: Generalized seizure, Benzodiazepine withdrawal with complication Patient Disposition: Home, Self-Care Instructions: Generalized Tonic Clonic Seizures (ED) Additional Instructions: Your seizure today is more than likely secondary to not taking your benzo diazepam for the past 4 days, Make sure you take your benzo diazepam as prescribed. Prescriptions: No Action zolpidem 10 mg tablet 10 mg PO BEDTIME PRN zolpidem 5 mg tablet 5 mg PO BEDTIME PRN carisoprodol 350 mg tablet 350 mg PO TID PRN lorazepam 1 mg tablet 1 mg PO DAILY PRN oxycodone 10 mg tablet 10 mg PO QID PRN mometasone 0.1 % ointment topical citalopram 10 mg tablet 10 mg PO DAILY bupropion HCl 150 mg tablet sustained-release 12 hr 150 mg PO DAILY Referrals: Dina Kay MD [Primary Care Provider] -
[2023-02-18] MEDS: LORazepam 1 MG TABLET 2 MG PO (00:43)
[2023-02-18] MEDS: 0.9 % Sodium Chloride 1,000 ML 999 ML IV (00:45)
[2023-02-18 00:55] LABS: MANUAL DIFF FLAG NO
[2023-02-18 00:57] LABS: Basophils Absolute Auto 0.1 X10*3/uL (0.0-0.2); Basophils Percent Auto 0.5 % (0-2); Eosinophils Absolute Auto 0.3 X10*3/uL (0.0-0.4); Eosinophils Percent Auto 2.8 % (0-4); Hematocrit 37.9 % (37.0-47.0); Hemoglobin 12.4 g/dl (12.0-16.0); Imm Gran Abs Auto 0.06 X10*3/uL (0.00-0.03); Imm Gran Pct Auto 0.5 % (0.0-0.4); Lymphocytes Absolute Auto 2.9 X10*3/uL (1.2-4.9); Lymphocytes Percent Auto 24.7 % (20-40); Mean Corpuscular HGB Conc 32.7 g/dl (31.0-35.0); Mean Corpuscular Hemoglobin 29.5 pg (27.0-33.0); Mean Platelet Volume 9.8 fL (9.4-12.3); Monocytes Absolute Auto 0.7 X10*3/uL (0.1-1.2); Monocytes Percent Auto 6.1 % (2-11); Neutrophils Absolute Auto 7.6 x10*3/uL (2.0-8.3); Neutrophils Percent Auto 65.4 % (45-73); Platelet Count 385 X10*3/uL (160-400); Red Blood Count 4.21 X10*6/uL (4.20-5.50); White Blood Count 11.6 X10*3/uL (4.8-10.8)
[2023-02-18 01:10] LABS: Alanine Aminotransferase 14 U/L (0-31); Alkaline Phosphatase 59 U/L (39-117); Anion Gap 9 (12-20); Aspartate Amino Transferase 16 U/L (5-31); Bilirubin Direct 0.1 mg/dL (0.0-0.5); Bilirubin Total 0.3 mg/dL (0.0-1.0); Blood Urea Nitrogen 12 mg/dL (9-16); Calcium 9.3 mg/dL (8.4-10.2); Carbon Dioxide 29 mmol/L (22-29); Chloride 104 mmol/L (96-108); Estimated Glomerular Filt Rate > 60; Glucose Random 107 mg/dL (60-115); Lipase 5 U/L (8-78); Potassium 3.8 mmol/L (3.3-5.1); Sodium 138 mmol/L (135-145); Total Protein 6.1 g/dL (6.5-8.0)
[2023-02-18 01:26] VITALS: BP 103/60; PULSE 65; RESP 16; TEMP 36.6; O2SAT 98
[2023-02-18 01:38] VITALS: BP 104/58; PULSE 67; RESP 14; TEMP 36.8; O2SAT 98
--- NOTE | 2023-02-18 01:43 | MHC.EDTECH ---
PATIENT WAS ASSISTED UNTO BEDSIDE COMMODE ,PT VOID 350 ML ,URINE SAMPLE COLLECTED AND SENT TO LAB ,VITALS SIGN TAKEN ,PATIENT AT BESIDE .
[2023-02-18 01:50] LABS: Appearance Urine Clear; Color Urine Yellow; Glucose Urine UA Negative (Negative); Leukocyte Esterase Urine Negative (Negative); Nitrite Urine Negative (Negative); PH 5.5 (5.0-9.0); Specific Gravity - Urine 1.015 (1.005-1.025); UMIC TRIGGER UACC YES; Urine Blood Small (1+) (Negative); Urine Ketones Negative (Negative); Urine Protein 30 (1+) mg/dL (Neg-Trace)
[2023-02-18 01:52] LABS: UPreg QC Valid YES; Urine Pregnancy NEGATIVE (NEGATIVE)
[2023-02-18 02:03] LABS: Amphetamine Screen Urine Not Detected (Not Detect); Barbiturates, Urine Not Detected (Not Detect); Benzodiazepines Screen Urine Not Detected (Not Detect); Cannabinoid Screen Urine POSITIVE (Not Detect); Cocaine Screen Urine Not Detected (Not Detect); Fentanyl, urine Not Detected (Not Detect); Opiate Screen Urine POSITIVE (Not Detect); Phencyclidine Screen Urine POSITIVE (Not Detect)
[2023-02-18 02:15] LABS: Bacteria Urine None Seen (None Seen); RBC Urine 0-2 /HPF (0-2); WBC Urine 0-5 /HPF (0-5)
== END 2023-02-18 03:46 | disposition home or self-care (01) ==
PROVIDERS: Emergency Provider Emergency Medicine; PCP Family Medicine
DX: G40.409 Other generalized epilepsy and epileptic syndromes, not intractable, without status epilepticus (principal); T42.4X6A Underdosing of benzodiazepines, initial encounter; F19.930 Other psychoactive substance use, unspecified with withdrawal, uncomplicated; Y92.9 Unspecified place or not applicable; F41.9 Anxiety disorder, unspecified; G89.29 Other chronic pain; M54.50 Low back pain, unspecified; Z79.891 Long term (current) use of opiate analgesic; Z79.899 Other long term (current) drug therapy
CPT/HCPCS: 36415; 70450; 72125; 80048; 80076; 80307; 81001; 81025; 83690; 85025; 96360; 96361; 99284; 99285